=== PATIENT | female | born 1980 | race Caucasian/White ===

== ENCOUNTER 2017-07-24 07:53 | Emergency (ER) | payer OTHER ==
[~2017-07-24] VITALS: Ht 162.6 cm; Wt 71.0 kg
[2017-07-24 07:58] VITALS: BP 104/75; PULSE 88; RESP 16; TEMP 98.4; O2SAT 100
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
[2017-07-24] MEDS ORDERED: IBUPROFEN 600 MG TAB PO ONE (08:15)
[2017-07-24] MEDS ORDERED: SODIUM CHLORIDE 0.9% FLUSH 10 ML FLUSH IVF PRN (08:15)
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
[2017-07-24 09:15] LABS: AMORPHOUS SEDIMENT, URINE RARE; BACTERIA, URINE RARE /hpf; BILIRUBIN, URINE NEG (NEG); BLOOD, URINE SMALL (NEG); GLUCOSE,URINE NEG (NEG); KETONE, URINE NEG (NEG); MUCUS URINE FEW /lpf (OCC); NITRITE,URINE NEG (NEG); PH, URINE 5.5 (5.0-8.5); SQUAMOUS EPITHELIAL CELL URINE 10 /hpf (0-5); URINE COLOR LIGHT-YELLOW (YELLW/STRAW); URINE LEUKOCYTE ESTERASE MOD (NEG)
[2017-07-24 10:09] VITALS: O2SAT 100
== END 2017-07-24 10:34 | disposition home or self-care (01) ==
LOC: NEPE 07:53
DX: S30.0XXA Contusion of lower back and pelvis, initial encounter (principal); Z72.0 Tobacco use; V43.52XA Car driver injured in collision with other type car in traffic accident, initial encounter
CPT/HCPCS: 71045; 72100; 72170; 81001; 84703; 99284

== ENCOUNTER 2017-07-29 12:23 | Emergency (ER) | payer OTHER ==
[2017-07-29 13:02] VITALS: BP 112/63; PULSE 78; RESP 16; TEMP 97.6; O2SAT 100
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
--- NOTE | 2017-07-29 14:50 | RADRPT ---
EXAM DATE/TIME: 07/29/2017 14:14 [facility] COMPARISON: No previous studies available for comparison. INDICATIONS : Radioculopathy. RADIATION DOSE: 40.96 CTDIvol (mGy) MEDICAL HISTORY : None SURGICAL HISTORY : None. ENCOUNTER: Initial ACUITY: 1 day PAIN SCALE: 4/10 LOCATION: neck TECHNIQUE: Volumetric scanning of the cervical spine was performed. Multiplanar reconstructions in the sagittal, coronal and oblique axial planes were performed. Using automated exposure control and adjustment o f the mA and/or kV according to patient size, radiation dose was kept as low as reasonably achievable to obtain optimal diagnostic quality images. DICOM format image data is available electronically f or review and comparison. FINDINGS: VERTEBRAE: Normal vertebral body height. ALIGNMENT: No evidence of subluxation. C2-C3: The bony spinal canal is normal in size. No evidence of disc bulge or herniation. The neural forami na are bilaterally patent. C3-C4: The bony spinal canal is normal in size. No evidence of disc bulge or herniation. The neural forami na are bilaterally patent. C4-C5: The bony spinal canal is normal in size. No evidence of disc bulge or herniation. The neural forami na are bilaterally patent. C5-C6: The bony spinal canal is normal in size. No evidence of disc bulge or herniation. The neural forami na are bilaterally patent. C6-C7: The bony spinal canal is normal in size. No evidence of disc bulge or herniation. The neural forami na are bilaterally patent. C7-T1: The bony spinal canal is normal in size. No evidence of disc bulge or herniation. The neural forami na are bilaterally patent. CONCLUSION: Normal examination for a patient of this age. Harjinder Whiteside MD on July 29, 2017 at 14:47 Board Certified Radiologist. This report was verified electronically.
[2017-07-29] MEDS ORDERED: MEDR4PAK PO (14:59)
[2017-07-29] MEDS ORDERED: CYCL10TA PO (14:59)
== END 2017-07-29 15:11 | disposition home or self-care (01) ==
LOC: NEPK 12:23
DX: M54.12 Radiculopathy, cervical region (principal); Z72.0 Tobacco use; Z87.19 Personal history of other diseases of the digestive system
CPT/HCPCS: 72125; 99283